=== PATIENT | female | born 1970 | race Caucasian/White ===

== ENCOUNTER 2016-09-01 11:33 | Day surgery (SDC) | payer OTHER ==
[~2016-09-01 11:33] MED LIST: Lactated Ringers 1,000 ML IV SCH; Sodium Chloride 0.9% 10 ML Syringe FLUSH PRN; Sodium Chloride 0.9% 2.5 ML Syringe FLUSH PRN
--- NOTE | 2016-09-01 11:58 | PCM.PREANE ---
Preanesthetic Assessment - Anesthesia/Transfusion/Family Hx Anesthesia History: Prior Anesthesia Without Reaction Other Type of Anesthesia Reaction Comment: Reports 'some nausea', 'my mother would get sick and some diff breathing Transfusion History: No Prior Transfusion(s) - Review of Systems General: No Symptoms Pulmonary: No Symptoms Cardiovascular: No Symptoms Gastrointestinal: No symptoms Neurological: No Symptoms Other: Reports: None - Physical Assessment NPO Status Date: 08/31/16 Height: 1.78 m Weight: 113.398 kg ASA Class: 2 Mental Status: Alert & Oriented x3 Airway Class: Mallampati = 1 Dentition: Reports: Normal Dentition ROM/Head Extension: Full Lungs: Clear to auscultation, Normal respiratory effort Cardiovascular: Regular Rate, Regular Rhythm - Allergies Allergies/Adverse Reactions: Allergies Allergy/AdvReac Type Severity Reaction Status Date / Time ciprofloxacin [From Cipro] Allergy Severe Rash Verified 08/27/16 10:56 ciprofloxacin HCl Allergy Severe Rash Verified 08/27/16 10:56 [From Cipro] ibuprofen Allergy throat Verified 08/27/16 10:56 swelling/SOB Penicillins Allergy Rash Verified 06/05/15 11:55 Sulfa (Sulfonamide Allergy Rash Verified 08/27/16 10:56 Antibiotics) Raw fruits and vegetables Allergy tongue Uncoded 08/27/16 10:56 swelling - Anesthesia Plan Pre-Op Medication Ordered: None - Acknowledgements Anesthesia Type Planned: MAC Pt an Appropriate Candidate for the Planned Anesthesia: Yes Alternatives and Risks of Anesthesia Discussed w Pt/Guardian: Yes Pt/Guardian Understands and Agrees with Anesthesia Plan: Yes PreAnesthesia Questionnaire Respiratory History: Reports: Asthma Other Respiratory History: seasonal and sports induced asthma Gastrointestinal History: Reports: Irritable bowel syndrome Genitourinary History: Reports: UTI, recurrent MANUFACTURING COORDINATOR History: Reports: Endometriosis, Musculoskeletal History: Reports: Other (see below) Other Musculoskeletal History: Stiffness to Left Neck and Shoulder hx: chipping an elbow Neurological History: Reports: Migraines Psychiatric History: Reports: Anxiety, Depression Endocrine/Metabolic History: Reports: Obesity/BMI 30+ Dermatologic History: Reports: Eczema - Past Surgical History HEENT Surgical History: Reports: LASIK GI Surgical History: Reports: Cholecystectomy Female Surgical History: Reports: Breast implant Other Female Surgeries/Procedures: hx laparoscopy x5 for endometriosis, breast augmentation, transobturator vaginal taping, Male Surgical History: Reports: Other (see below) - SUBSTANCE USE Smoking Status *Q: Never Smoker Second Hand Smoke Exposure: Yes Days Per Week of Alcohol Use: 1 Number of Drinks Per Day: 2 Total Drinks Per Week: 2 Recreational Drug Use History: No - HOME MEDS Home Medications: Home Meds buPROPion [Wellbutrin XL] 2 tab PO DAILY 06/05/15 [History] medroxyPROGESTERone Acetate [Depo-Provera] 1 injection INJECT ASDIRECTED [History] Levomilnacipran Hydrochloride [Fetzima] 120 mg PO DAILY 06/07/15 [History] Albuterol [Ventolin HFA] 1 - 2 puff INH ASDIRECTED PRN 08/27/16 [History] Chrom Rhonda/Brindal Cabrera [Garcinia Cambogia Tablet] 1 tab PO DAILY 08/27/16 [ History] Estrogens, Conjugated [Premarin] 0.3 mg PO DAILY 08/27/16 [History] Hydrocortisone [Hydrocortisone 1% Crm] 1 applic TOP BID PRN 08/27/16 [History] metroNIDAZOLE [Metrogel] 1 applic TOP BID PRN 08/27/16 [History] - CURRENT (IN HOUSE) MEDS Current Meds: Current Medications Lactated Ringer's (Ringers, Lactated) 1,000 mls @ 125 mls/hr IV ASDIRECTED MEG Sodium Chloride (Saline Flush) 10 ml FLUSH ASDIRECTED PRN PRN Reason: Keep Vein Open Sodium Chloride (Saline Flush) 2.5 ml FLUSH ASDIRECTED PRN PRN Reason: Keep Vein Open Preanesthetic Assessment - ANESTHESIA/TRANSFUSION/FAMILY HX Anesthesia/Transfusion History: No Prior Transfusion(s), Prior Anesthesia Type of Anesthesia Reaction: Reports: Other (see below) (jaw pain after general anesthesia (possible airway obstruction treated with triple airway maneuver??)) Other Type of Anesthesia Reaction Comment: Reports 'some nausea', 'my mother would get sick and some diff breathing Family History of Anesthesia Reaction: No Intubation History: Unknown (patient was never told that she was a difficult intubation), Other (see below) (TMJ soarness after anesthesia ) - PHYSICAL ASSESSMENT Height: 1.78 m Weight: 113.398 kg - ALLERGIES Allergies/Adverse Reactions: Allergies Allergy/AdvReac Type Severity Reaction Status Date / Time ciprofloxacin [From Cipro] Allergy Severe Rash Verified 08/27/16 10:56 ciprofloxacin HCl Allergy Severe Rash Verified 08/27/16 10:56 [From Cipro] ibuprofen Allergy throat Verified 08/27/16 10:56 swelling/SOB Penicillins Allergy Rash Verified 06/05/15 11:55 Sulfa (Sulfonamide Allergy Rash Verified 08/27/16 10:56 Antibiotics) Raw fruits and vegetables Allergy tongue Uncoded 08/27/16 10:56 swelling
[2016-09-01] MEDS ORDERED: Propofol 200 MG/20 ML SDV ONE (12:16)
[2016-09-01] MEDS ORDERED: Ondansetron 4 MG/2 ML SDV ONE (12:16)
[2016-09-01] MEDS ORDERED: Lidocaine 2% 5 ML SDV ONE (12:16)
[2016-09-01] MEDS ORDERED: fentaNYL 100 MCG/2 ML SDV ONE ×2 (12:16→12:47)
[2016-09-01] MEDS ORDERED: Midazolam 1 MG/ML 2 ML SDV ONE (12:16)
[2016-09-01] MEDS ORDERED: fentaNYL 100 MCG/2 ML SDV IVPUSH PRN (13:05)
[2016-09-01] MEDS ORDERED: Lidocaine 1% with EPINEPHrine 1:100,000 20 ML MDV ONE (13:43)
--- NOTE | 2016-09-01 14:19 | PCM.OPNOTE ---
- General Post-Op/Procedure Note Date of Surgery/Procedure: 09/01/16 Operative Procedure(s): LEEP of cervix Findings: KELSEY II Pre Op Diagnosis: KELSEY II Post-Op Diagnosis: Same Anesthesia Technique: Local, MAC Primary Surgeon: Felisa Atkinson Pathology: Anterior/posterior lip of cervix, endocervical hat, ECC Fluid Replacement, Intraop: 1,100 EBL in mLs: 10 Condition: Good Free Text/Narrative:: Dictation [id number]
--- NOTE | 2016-09-01 14:51 | PCM.POSTAN ---
POST ANESTHESIA ASSESSMENT - MENTAL STATUS Mental Status: alert, oriented - RESPIRATORY Respiratory Status: respiratory rate WNL, airway patent, O2 saturation stable - CARDIOVASCULAR CV Status: pulse rate WNL, blood pressure stable - GASTROINTESTINAL GI Status: no symptoms - PAIN Free Text/Narrative:: complains of headache - POST OP HYDRATION Hydration Status: adequate & stable
--- NOTE | 2016-09-01 15:11 | PCM48HPAN ---
Post Anesthesia Note - EVALUATION WITHIN 48HRS OF ANESTHETIC Vital Signs in Normal Range: Yes Patient Participated in Evaluation: Yes Respiratory Function Stable: Yes Airway Patent: Yes Cardiovascular Function Stable: Yes Hydration Status Stable: Yes Pain Control Satisfactory: Yes Nausea and Vomiting Control Satisfactory: Yes Mental Status Recovered: Yes
[2016-09-01 15:58] VITALS: BP 143/78
--- NOTE | 2016-09-01 20:56 | OR ---
SURGEON: Felisa Atkinson M.D. DATE OF PROCEDURE: 09/01/2016 PREOPERATIVE DIAGNOSIS: Cervical intraepithelial neoplasia II. POSTOPERATIVE DIAGNOSIS: Cervical intraepithelial neoplasia II. PROCEDURE: LEEP of cervix. ANESTHESIA: MAC/local. FLUIDS: 700 mL crystalloid. COMPLICATIONS: None known. FINDINGS: KELSEY II cervix. DISPOSITION: The patient to PACU in stable condition. INDICATIONS: Anne-Marie is a 45-year-old female, who has biopsy proven KELSEY I and II, therefore have advised proceeding with surgical evaluation of the LEEP. Risks of the procedure have been discussed. Proper consent obtained. The patient taken the operating room, where she underwent MAC, was prepped and draped and then placed in modified dorsal lithotomy position. A time-out was performed. A coated speculum was introduced in the vagina as well as sidewall retractor. Cervix was visualized. The region was prepped with Lugol solution. Local anesthetic was placed, 1% lidocaine with epinephrine. Please see the nursing notes for total amount dispensed. Cervical block was performed. Using a 20 x 8 mm loop, the anterior lip of the cervix was now excised followed by posterior lip, a 5 mm endocervical hat was excised followed by endocervical curettings. The wound bed was now cauterized with rollerball and Monsel's placed. Hemostasis appears evident. All specimens to pathology. Instruments were removed from the vagina. Hemostasis evident. The patient tolerated the procedure well. She will go to PACU in stable condition. Specimens to pathology. TARSHA / MARICARMEN /[id number]
== END 2016-09-01 16:00 | disposition home or self-care (01) ==
LOC: MW.SDS 11:33
PROVIDERS: ATTEND Obstetrics & Gynecology
PROC: 0UBC7ZZ Excision of Cervix, Via Natural or Artificial Opening (ICD-10-PCS; principal; 2016-09-01)
DX: N87.1 Moderate cervical dysplasia (principal); F32.9 Major depressive disorder, single episode, unspecified; J45.909 Unspecified asthma, uncomplicated; K58.9 Irritable bowel syndrome, unspecified; E66.9 Obesity, unspecified; Z90.49 Acquired absence of other specified parts of digestive tract; Z98.890 Other specified postprocedural states; Z79.899 Other long term (current) drug therapy; Z68.36 Body mass index [BMI] 36.0-36.9, adult; Z88.0 Allergy status to penicillin; Z88.1 Allergy status to other antibiotic agents; Z88.2 Allergy status to sulfonamides; Z88.6 Allergy status to analgesic agent; Z91.018 Allergy to other foods; Z87.440 Personal history of urinary (tract) infections
CPT/HCPCS: 36415; 57522; 84703; 85025; 88305; 88307; J2250; J2405; J3010; J7120; 00940; J2704

== ENCOUNTER → 2016-09-23 | Outpatient (CLI) | payer OTHER ==
[~2016-09-23] MED LIST changes: +Iopamidol 755 MG/ML 500 ML Multipack Bottle IVPUSH STA; -Lactated Ringers 1,000 ML IV SCH; -Sodium Chloride 0.9% 10 ML Syringe FLUSH PRN; -Sodium Chloride 0.9% 2.5 ML Syringe FLUSH PRN
--- NOTE | 2016-09-23 10:35 | CT ---
CT of the abdomen and pelvis with contrast. HISTORY: Pelvic pain TECHNIQUE: Axial CT images were obtained of the abdomen and pelvis following administration of 90 mL of Isovue-370 in the left antecubital fossa without complication. Coronal and sagittal reconstructi ons obtained. FINDINGS: The lungs bases are clear. No pleural effusion. The liver, spleen, adrenal glands, and pancreas appear normal. Cholecystectomy clips are noted. The kidneys enhance and function symmetrically without evidence of obstructive uropathy. No bulky retrop eritoneal lymphadenopathy. The large and small bowel are normal in caliber without evidence of obstruction. The appendix is nor mal. No bulky pelvic lymphadenopathy. There is a trace free pelvic fluid. There is a small 2.[address] within the left ovary. The uterus appears normal. No suspicious osseous abnormalities. IMPRESSION: 1. Trace free pelvic fluid otherwise unremarkable head CT the abdomen and pelvis.
== END ==
LOC: MW.DI 08:33
PROVIDERS: ATTEND Obstetrics & Gynecology
DX: N83.202 Unspecified ovarian cyst, left side (principal)
CPT/HCPCS: 36415; 74177; 80053; Q9967

== ENCOUNTER 2016-11-16 14:27 | Emergency (ER) | payer OTHER ==
[2016-11-16] MEDS ORDERED: Ketorolac 60 MG/2 ML SDV IM ONE (16:23)
--- NOTE | 2016-11-16 16:36 | EDM.PDOC ---
ED HPI GENERAL MEDICAL PROBLEM - General Chief Complaint: Back Pain or Injury Stated Complaint: PT HAS BACK PAIN Time Seen by Provider: 11/16/16 15:40 Source of Information: Reports: Patient History Limitations: Reports: No Limitations - History of Present Illness INITIAL COMMENTS - FREE TEXT/NARRATIVE: History of present illness: [45-year-old female presenting with complaints of lower back pain with some amount of radiculopathy down both legs. Patient indicates that the pain also comes around into her groin.] Review of systems: As per history of present illness and below otherwise all systems reviewed and negative. Past medical history: As per history of present illness and as reviewed below otherwise noncontributory. Surgical history: As per history of present illness and as reviewed below otherwise noncontributory. Social history: No reported history of drug or alcohol abuse. Family history: As per history of present illness and as reviewed below otherwise noncontributory. Physical exam: HEENT: Atraumatic, normocephalic, pupils reactive, negative for conjunctival pallor or scleral icterus, mucous membranes moist, throat clear, neck supple, nontender, trachea midline. Lungs: Clear to auscultation, breath sounds equal bilaterally, chest nontender. Heart: S1S2, regular, negative for clicks, rubs, or JVD. Abdomen: Soft, nondistended, nontender. Negative for masses or hepatosplenomegaly. Negative for costovertebral tenderness. Pelvis: Stable nontender. Genitourinary: Deferred. Rectal: Deferred. Extremities: Atraumatic, negative for cords or calf pain. Neurovascular unremarkable. Neuro: Awake, alert, oriented. Cranial nerves II through XII unremarkable. Cerebellum unremarkable. Motor and sensory unremarkable throughout. Exam nonfocal. Patient is without neuro deficits but does have some point tenderness at the base of her spine. Palpable spasm noted on right flank. Otherwise negative assessment save as noted above and subjective complaint of neuropathic pain. Diagnostics: [X-ray of lumbar spine] Therapeutics: [Norflex IM, Toradol IM] Impression: [Back pain] Plan: [Muscle relaxer, pain medicine] Definitive disposition and diagnosis as appropriate pending reevaluation and review of above. back Pain Score (Numeric/FACES): 7 - Related Data Allergies Allergy/AdvReac Type Severity Reaction Status Date / Time ciprofloxacin [From Cipro] Allergy Severe Rash Verified 11/16/16 14:38 ciprofloxacin HCl Allergy Severe Rash Verified 11/16/16 14:38 [From Cipro] ibuprofen Allergy throat Verified 11/16/16 14:38 swelling/SOB Penicillins Allergy Rash Verified 11/16/16 14:38 Sulfa (Sulfonamide Allergy Rash Verified 11/16/16 14:38 Antibiotics) Raw fruits and vegetables Allergy tongue Uncoded 11/16/16 14:38 swelling Home Meds: Home Meds buPROPion [Wellbutrin XL] 2 tab PO DAILY 06/05/15 [History] medroxyPROGESTERone Acetate [Depo-Provera] 1 injection INJECT ASDIRECTED [History] Levomilnacipran Hydrochloride [Fetzima] 120 mg PO DAILY 06/07/15 [History] Albuterol [Ventolin HFA] 1 - 2 puff INH ASDIRECTED PRN 08/27/16 [History] Chrom Rhonda/Brindal Cabrera [Garcinia Cambogia Tablet] 1 tab PO DAILY 08/27/16 [ History] Estrogens, Conjugated [Premarin] 0.3 mg PO DAILY 08/27/16 [History] Hydrocortisone [Hydrocortisone 1% Crm] 1 applic TOP BID PRN 08/27/16 [History] metroNIDAZOLE [Metrogel] 1 applic TOP BID PRN 08/27/16 [History] Past Medical History Respiratory History: Reports: Asthma Other Respiratory History: seasonal and sports induced asthma Gastrointestinal History: Reports: Irritable Bowel Syndrome Genitourinary History: Reports: UTI, Recurrent [employer] History: Reports: Endometriosis, Musculoskeletal History: Reports: Other (See Below) Other Musculoskeletal History: Stiffness to Left Neck and Shoulder hx: chipping an elbow Neurological History: Reports: Migraines Psychiatric History: Reports: Anxiety, Depression Endocrine/Metabolic History: Reports: Obesity/BMI 30+ Dermatologic History: Reports: Eczema - Past Surgical History Female Surgical History: Reports: Breast Implant, LEEP Social & Family History - Family History Family Medical History: Noncontributory - Tobacco Use Smoking Status *Q: Never Smoker Second Hand Smoke Exposure: Yes - Caffeine Use Caffeine Use: Reports: None - Alcohol Use Days Per Week of Alcohol Use: 1 Number of Drinks Per Day: 2 Total Drinks Per Week: 2 - Recreational Drug Use Recreational Drug Use: No Drug Use in Last 12 Months: No ED ROS GENERAL - Review of Systems Review Of Systems: See Below (See history of present illness) ED EXAM,LOWER BACK PAIN/INJURY - Physical Exam Exam: See Below (See history of present illness) Course - Vital Signs Last Recorded V/S: Last Vital Signs Temp 36.5 C 11/16/16 14:39 Pulse 97 11/16/16 14:39 Resp 18 11/16/16 14:39 BP 188/83 H 11/16/16 14:39 Pulse Ox 94 L 11/16/16 14:39 - Orders/Labs/Meds Orders: Active Orders 24 hr Category Date Time Status Lumbar Spine 2 or 3V [CR] Stat Exams 11/16/16 16:23 Ordered Meds: Medications Discontinued Medications Generic Name Dose Route Start Last Admin Trade Name Vianey PRN Reason Stop Dose Admin Ketorolac Tromethamine 60 mg 11/16/16 16:23 Toradol IM 11/16/16 16:24 ONETIME ONE Orphenadrine Citrate 60 mg 11/16/16 15:44 11/16/16 16:11 Norflex IM 11/16/16 15:45 60 mg ONETIME STA Administration Departure - Departure Time of Disposition: 17:10 Disposition: Home, Self-Care 01 Condition: good Clinical Impression: Back pain - Discharge Information Forms: ED Department Discharge Additional Instructions: ED HPI GENERAL MEDICAL PROBLEM - General Chief Complaint: Back Pain or Injury Stated Complaint: PT HAS BACK PAIN Time Seen by Provider: 11/16/16 15:40 Source of Information: Reports: Patient History Limitations: Reports: No Limitations - History of Present Illness INITIAL COMMENTS - FREE TEXT/NARRATIVE: History of present illness: [45-year-old female presenting with complaints of lower back pain with some amount of radiculopathy down both legs. Patient indicates that the pain also comes around into her groin.] Review of systems: As per history of present illness and below otherwise all systems reviewed and negative. Past medical history: As per history of present illness and as reviewed below otherwise noncontributory. Surgical history: As per history of present illness and as reviewed below otherwise noncontributory. Social history: No reported history of drug or alcohol abuse. Family history: As per history of present illness and as reviewed below otherwise noncontributory. Physical exam: HEENT: Atraumatic, normocephalic, pupils reactive, negative for conjunctival pallor or scleral icterus, mucous membranes moist, throat clear, neck supple, nontender, trachea midline. Lungs: Clear to auscultation, breath sounds equal bilaterally, chest nontender. Heart: S1S2, regular, negative for clicks, rubs, or JVD. Abdomen: Soft, nondistended, nontender. Negative for masses or hepatosplenomegaly. Negative for costovertebral tenderness. Pelvis: Stable nontender. Genitourinary: Deferred. Rectal: Deferred. Extremities: Atraumatic, negative for cords or calf pain. Neurovascular unremarkable. Neuro: Awake, alert, oriented. Cranial nerves II through XII unremarkable. Cerebellum unremarkable. Motor and sensory unremarkable throughout. Exam nonfocal. Patient is without neuro deficits but does have some point tenderness at the base of her spine. Palpable spasm noted on right flank. Otherwise negative assessment save as noted above and subjective complaint of neuropathic pain. Diagnostics: [X-ray of lumbar spine] Therapeutics: [Norflex IM, Toradol IM] Impression: [Back pain] Plan: [Muscle relaxer, pain medicine] Definitive disposition and diagnosis as appropriate pending reevaluation and review of above. back Pain Score (Numeric/FACES): 7 - Related Data Allergies Allergy/AdvReac Type Severity Reaction Status Date / Time ciprofloxacin [From Cipro] Allergy Severe Rash Verified 11/16/16 14:38 ciprofloxacin HCl Allergy Severe Rash Verified 11/16/16 14:38 [From Cipro] ibuprofen Allergy throat Verified 11/16/16 14:38 swelling/SOB Penicillins Allergy Rash Verified 11/16/16 14:38 Sulfa (Sulfonamide Allergy Rash Verified 11/16/16 14:38 Antibiotics) Raw fruits and vegetables Allergy tongue Uncoded 11/16/16 14:38 swelling Home Meds: Home Meds buPROPion [Wellbutrin XL] 2 tab PO DAILY 06/05/15 [History] medroxyPROGESTERone Acetate [Depo-Provera] 1 injection INJECT ASDIRECTED [History] Levomilnacipran Hydrochloride [Fetzima] 120 mg PO DAILY 06/07/15 [History] Albuterol [Ventolin HFA] 1 - 2 puff INH ASDIRECTED PRN 08/27/16 [History] Chrom Rhonda/Brindal Cabrera [Garcinia Cambogia Tablet] 1 tab PO DAILY 08/27/16 [ History] Estrogens, Conjugated [Premarin] 0.3 mg PO DAILY 08/27/16 [History] Hydrocortisone [Hydrocortisone 1% Crm] 1 applic TOP BID PRN 08/27/16 [History] metroNIDAZOLE [Metrogel] 1 applic TOP BID PRN 08/27/16 [History] Past Medical History Respiratory History: Reports: Asthma Other Respiratory History: seasonal and sports induced asthma Gastrointestinal History: Reports: Irritable Bowel Syndrome Genitourinary History: Reports: UTI, Recurrent [employer]ER History: Reports: Endometriosis, Musculoskeletal History: Reports: Other (See Below) Other Musculoskeletal History: Stiffness to Left Neck and Shoulder hx: chipping an elbow Neurological History: Reports: Migraines Psychiatric History: Reports: Anxiety, Depression Endocrine/Metabolic History: Reports: Obesity/BMI 30+ Dermatologic History: Reports: Eczema - Past Surgical History Female Surgical History: Reports: Breast Implant, LEEP Social & Family History - Family History Family Medical History: Noncontributory - Tobacco Use Smoking Status *Q: Never Smoker Second Hand Smoke Exposure: Yes - Caffeine Use Caffeine Use: Reports: None - Alcohol Use Days Per Week of Alcohol Use: 1 Number of Drinks Per Day: 2 Total Drinks Per Week: 2 - Recreational Drug Use Recreational Drug Use: No Drug Use in Last 12 Months: No ED ROS GENERAL - Review of Systems Review Of Systems: See Below (See history of present illness) ED EXAM,LOWER BACK PAIN/INJURY - Physical Exam Exam: See Below (See history of present illness) Course - Vital Signs Last Recorded V/S: Last Vital Signs Temp 36.5 C 11/16/16 14:39 Pulse 97 11/16/16 14:39 Resp 18 11/16/16 14:39 BP 188/83 H 11/16/16 14:39 Pulse Ox 94 L 11/16/16 14:39 - Orders/Labs/Meds Orders: Active Orders 24 hr Category Date Time Status Lumbar Spine 2 or 3V [CR] Stat Exams 11/16/16 16:23 Ordered Meds: Medications Discontinued Medications Generic Name Dose Route Start Last Admin Trade Name Freq PRN Reason Stop Dose Admin Ketorolac Tromethamine 60 mg 11/16/16 16:23 Toradol IM 11/16/16 16:24 ONETIME ONE Orphenadrine Citrate 60 mg 11/16/16 15:44 11/16/16 16:11 Norflex IM 11/16/16 15:45 60 mg ONETIME STA Administration Departure - Departure Time of Disposition: 17:10 Disposition: Home, Self-Care 01 Condition: good Clinical Impression: Back pain - Discharge Information Forms: ED Department Discharge - My Orders Last 24 Hours: My Active Orders 11/16/16 16:23 Lumbar Spine 2 or 3V [CR] Stat - Assessment/Plan Last 24 Hours: My Active Orders 11/16/16 16:23 Lumbar Spine 2 or 3V [CR] Stat ED HPI GENERAL MEDICAL PROBLEM - General Chief Complaint: Back Pain or Injury Stated Complaint: PT HAS BACK PAIN Time Seen by Provider: 11/16/16 15:40 Source of Information: Reports: Patient History Limitations: Reports: No Limitations - History of Present Illness INITIAL COMMENTS - FREE TEXT/NARRATIVE: History of present illness: [45-year-old female presenting with complaints of lower back pain with some amount of radiculopathy down both legs. Patient indicates that the pain also comes around into her groin.] Review of systems: As per history of present illness and below otherwise all systems reviewed and negative. Past medical history: As per history of present illness and as reviewed below otherwise noncontributory. Surgical history: As per history of present illness and as reviewed below otherwise noncontributory. Social history: No reported history of drug or alcohol abuse. Family history: As per history of present illness and as reviewed below otherwise noncontributory. Physical exam: HEENT: Atraumatic, normocephalic, pupils reactive, negative for conjunctival pallor or scleral icterus, mucous membranes moist, throat clear, neck supple, nontender, trachea midline. Lungs: Clear to auscultation, breath sounds equal bilaterally, chest nontender. Heart: S1S2, regular, negative for clicks, rubs, or JVD. Abdomen: Soft, nondistended, nontender. Negative for masses or hepatosplenomegaly. Negative for costovertebral tenderness. Pelvis: Stable nontender. Genitourinary: Deferred. Rectal: Deferred. Extremities: Atraumatic, negative for cords or calf pain. Neurovascular unremarkable. Neuro: Awake, alert, oriented. Cranial nerves II through XII unremarkable. Cerebellum unremarkable. Motor and sensory unremarkable throughout. Exam nonfocal. Patient is without neuro deficits but does have some point tenderness at the base of her spine. Palpable spasm noted on right flank. Otherwise negative assessment save as noted above and subjective complaint of neuropathic pain. Diagnostics: [X-ray of lumbar spine] Therapeutics: [Norflex IM, Toradol IM] Impression: [Back pain] Plan: [Muscle relaxer, pain medicine] Definitive disposition and diagnosis as appropriate pending reevaluation and review of above. back Pain Score (Numeric/FACES): 7 - Related Data Allergies Allergy/AdvReac Type Severity Reaction Status Date / Time ciprofloxacin [From Cipro] Allergy Severe Rash Verified 11/16/16 14:38 ciprofloxacin HCl Allergy Severe Rash Verified 11/16/16 14:38 [From Cipro] ibuprofen Allergy throat Verified 11/16/16 14:38 swelling/SOB Penicillins Allergy Rash Verified 11/16/16 14:38 Sulfa (Sulfonamide Allergy Rash Verified 11/16/16 14:38 Antibiotics) Raw fruits and vegetables Allergy tongue Uncoded 11/16/16 14:38 swelling Home Meds: Home Meds buPROPion [Wellbutrin XL] 2 tab PO DAILY 06/05/15 [History] medroxyPROGESTERone Acetate [Depo-Provera] 1 injection INJECT ASDIRECTED [History] Levomilnacipran Hydrochloride [Fetzima] 120 mg PO DAILY 06/07/15 [History] Albuterol [Ventolin HFA] 1 - 2 puff INH ASDIRECTED PRN 08/27/16 [History] Chrom Rhonda/Brindal Cabrera [Garcinia Cambogia Tablet] 1 tab PO DAILY 08/27/16 [ History] Estrogens, Conjugated [Premarin] 0.3 mg PO DAILY 08/27/16 [History] Hydrocortisone [Hydrocortisone 1% Crm] 1 applic TOP BID PRN 08/27/16 [History] metroNIDAZOLE [Metrogel] 1 applic TOP BID PRN 08/27/16 [History] Past Medical History Respiratory History: Reports: Asthma Other Respiratory History: seasonal and sports induced asthma Gastrointestinal History: Reports: Irritable Bowel Syndrome Genitourinary History: Reports: UTI, Recurrent [employer] History: Reports: Endometriosis, Musculoskeletal History: Reports: Other (See Below) Other Musculoskeletal History: Stiffness to Left Neck and Shoulder hx: chipping an elbow Neurological History: Reports: Migraines Psychiatric History: Reports: Anxiety, Depression Endocrine/Metabolic History: Reports: Obesity/BMI 30+ Dermatologic History: Reports: Eczema - Past Surgical History Female Surgical History: Reports: Breast Implant, LEEP Social & Family History - Family History Family Medical History: Noncontributory - Tobacco Use Smoking Status *Q: Never Smoker Second Hand Smoke Exposure: Yes - Caffeine Use Caffeine Use: Reports: None - Alcohol Use Days Per Week of Alcohol Use: 1 Number of Drinks Per Day: 2 Total Drinks Per Week: 2 - Recreational Drug Use Recreational Drug Use: No Drug Use in Last 12 Months: No ED ROS GENERAL - Review of Systems Review Of Systems: See Below (See history of present illness) ED EXAM,LOWER BACK PAIN/INJURY - Physical Exam Exam: See Below (See history of present illness) Course - Vital Signs Last Recorded V/S: Last Vital Signs Temp 36.5 C 11/16/16 14:39 Pulse 97 11/16/16 14:39 Resp 18 11/16/16 14:39 BP 188/83 H 11/16/16 14:39 Pulse Ox 94 L 11/16/16 14:39 - Orders/Labs/Meds Orders: Active Orders 24 hr Category Date Time Status Lumbar Spine 2 or 3V [CR] Stat Exams 11/16/16 16:23 Ordered Meds: Medications Discontinued Medications Generic Name Dose Route Start Last Admin Trade Name Freq PRN Reason Stop Dose Admin Ketorolac Tromethamine 60 mg 11/16/16 16:23 Toradol IM 11/16/16 16:24 ONETIME ONE Orphenadrine Citrate 60 mg 11/16/16 15:44 11/16/16 16:11 Norflex IM 11/16/16 15:45 60 mg ONETIME STA Administration Departure - Departure Time of Disposition: 17:10 Disposition: Home, Self-Care 01 Condition: good Clinical Impression: Back pain - Discharge Information Forms: ED Department Discharge - My Orders Last 24 Hours: My Active Orders 11/16/16 16:23 Lumbar Spine 2 or 3V [CR] Stat - Assessment/Plan Last 24 Hours: My Active Orders 11/16/16 16:23 Lumbar Spine 2 or 3V [CR] Stat The following information is given to patients seen in the emergency department who are being discharged to home. This information is to outline your options for follow-up care. We provide all patients seen in our emergency department with a follow-up referral. The need for follow-up, as well as the timing and circumstances, are variable depending upon the specifics of your emergency department visit. If you don't have a primary care physician on staff, we will provide you with a referral. We always advise you to contact your personal physician following an emergency department visit to inform them of the circumstance of the visit and for follow-up with them and/or the need for any referrals to a consulting specialist. The emergency department will also refer you to a specialist when appropriate. This referral assures that you have the opportunity for follow-up care with a specialist. All of these measure are taken in an effort to provide you with optimal care, which includes your follow-up. Under all circumstances we always encourage you to contact your private physician who remains a resource for coordinating your care. When calling for follow-up care, please make the office aware that this follow-up is from your recent emergency room visit. If for any reason you are refused follow-up, please contact the [facility] Emergency Department at and asked to speak to the emergency department charge nurse. Take medication as directed Follow-up with PCP in 1-2 days Return to ED as needed as discussed - My Orders Last 24 Hours: My Active Orders 11/16/16 16:23 Lumbar Spine 2 or 3V [CR] Stat - Assessment/Plan Last 24 Hours: My Active Orders 11/16/16 16:23 Lumbar Spine 2 or 3V [CR] Stat
[2016-11-16 18:11] VITALS: BP 138/84
--- NOTE | 2016-11-17 11:33 | CR ---
EXAM DATE: 11/16/16 PATIENT'S AGE: 45 Patient: JORDANA HENAO Facility: [place], [place] Site . Site : [id number] Study: XRay Spine Lumbar [id number] 5:03:38 PM Ordering Physician: Doctor Canales Final Report: HISTORY: Back pain over 1 week. Technique: Upright AP and lateral lumbosacral spine, 3 views. Comparison: None. Findings: There are small 12th ribs and 5 lumbar type vertebrae. Alignment is normal. Vertebral bodies are normal in height. Mild disc space narrowing is present at L3-4 with endplate sclerosis and mild vertebral spurring. No focal blastic or lytic lesion is seen. Impression: Mild disc space narrowing and vertebral spondylosis at L3-4. Dictated by Dre Henson MD @ Nov 16 2016 5:06PM (Electronic Signature) Report Signed by Proxy. BRINDA
== END 2016-11-16 18:15 | disposition home or self-care (01) ==
LOC: MW.ED 14:27
DX: M54.5 Low back pain (principal); J45.909 Unspecified asthma, uncomplicated; F41.9 Anxiety disorder, unspecified; F32.9 Major depressive disorder, single episode, unspecified; E66.9 Obesity, unspecified; Z68.35 Body mass index [BMI] 35.0-35.9, adult; Z87.440 Personal history of urinary (tract) infections; Z79.899 Other long term (current) drug therapy; Z98.890 Other specified postprocedural states; Z88.0 Allergy status to penicillin; Z88.1 Allergy status to other antibiotic agents; Z88.2 Allergy status to sulfonamides; Z88.8 Allergy status to other drugs, medicaments and biological substances
CPT/HCPCS: 72100; 96372; 99283; J1885; J2360